=== PATIENT | female | born 1940 | race Caucasian/White ===

== ENCOUNTER 2018-10-15 13:53 | Emergency (ER) | payer MEDICARE, SELFPAY ==
[2018-10-15 13:59] VITALS: TEMP 37; BMI 35.5
[2018-10-15 14:06] VITALS: BP 109/64; PULSE 72; RESP 11; TEMP 37; O2SAT 94
--- NOTE | 2018-10-15 14:15 | DI.CT.S_ITS ---
PROCEDURE: CT HEAD/BRAIN WO CON INDICATIONS: dizzy, n,v like when she had a tia before. TECHNIQUE: Noncontrast 4.5 mm thick angled axial sections acquired from the foramen magnum to the vertex, with coronal and sagittal reformats. For radiation dose reduction, the following was used: automated exposure control, adjustment of mA and/or kV according to patient size. COMPARISON: [facility], CT, BRAIN (TPA), 12/30/2013, 12:38. FINDINGS: Image quality: Excellent. CSF spaces: Basal cisterns are patent. No extra-axial fluid collections. The ventricles are symmetric in size and shape. Brain: No intracranial bleeds or masses. There is moderate cerebral volume loss for age, with resultant ventricular and sulcal prominence. There are moderate to severe periventricular and deep white matter chronic small vessel ischemic changes. There is intracranial internal carotid and vertebral artery atherosclerosis. Skull and face: Calvarium and visualized facial bones appear intact, without suspicious lesions. Sinuses: Visualized sinuses and mastoids are clear. IMPRESSION: No acute intracranial disease process. Dictated by: Eliana Andres MD, PhD on 10/15/2018 at 14:42 Approved by: Eliana Andres MD, PhD on 10/15/2018 at 14:46
[2018-10-15 14:23] LABS: Add Manual Diff / Slide Review NO; Basophils Absolute Auto 100 /uL (0-100); Basophils Percent Auto 1.4 % (0-2); Eosinophils Absolute Auto 300 /uL (0-450); Eosinophils Percent Auto 5.2 % (2-4); Hematocrit 40.8 % (36-46); Hemoglobin 12.7 g/dL (12.0-16.0); Lymphocytes Absolute Auto 900 /uL (1100-4500); Lymphocytes Percent Auto 15.3 % (25-40); Mean Corpuscular HGB Conc 31.2 % (30-36); Mean Corpuscular Volume 89.5 fL (80-100); Monocytes Absolute Auto 500 /uL (0-900); Monocytes Percent Auto 8.5 % (3-14); Neutrophils Absolute Auto 4100 /uL (1500-7000); Neutrophils Percent Auto 69.6 % (50-75); Platelet Count 162 X10^3/uL (150-400); Red Blood Cell Count 4.56 X10^6/uL (4.0-5.2); Red Cell Distribution Width 21.2 % (11.6-14.8); White Blood Cell Count 5.9 X10^3/uL (4.5-11.0)
[2018-10-15 14:31] LABS: Prothrombin Time 11.9 SECONDS (10.1-12.7)
[2018-10-15 14:33] LABS: PTT Partial Thromboplastin Tim 24 SECONDS (26.4-36.2)
[2018-10-15 14:35] LABS: Alanine Aminotransferase 32 IU/L (9-52); Albumin 4.1 g/dL (3.5-5.0); Albumin Globulin Ratio 1.5 (1.0-2.8); Alkaline Phosphatase 61 U/L (38-126); Aspartate Aminotransferase 32 IU/L (14-36); BUN Creatinine Ratio 16.7 (6-22); Bilirubin Total 0.5 mg/dL (0.2-1.3); Blood Urea Nitrogen 20 mg/dL (7-17); Calcium 8.9 mg/dL (8.4-10.2); Carbon Dioxide 25 mmol/L (22-32); Chloride 103 mmol/L (98-107); Estimated Glomerular Filt Rate 43.3 mL/min (>60); Globulin 2.8 g/dL (1.7-4.1); Glucose 117 mg/dL (80-110); HEMOLYSIS < 15 (0-50); Lipase 92 U/L (23-300); Potassium 4.3 mmol/L (3.4-5.1); Sodium 139 mmol/L (137-145); Total Protein 6.9 g/dL (6.3-8.2)
[2018-10-15 14:47] LABS: Troponin I < 0.012 ng/mL (0.01-0.034)
[2018-10-15] MEDS: SODIUM CHLORIDE 0.9% 1,000 ML 1000 ML IV (14:47)
[2018-10-15 14:56] LABS: Anisocytosis 1+; Poikilocytosis 1+
[2018-10-15 14:57] LABS: Platelet Estimate Decreased on smear
--- NOTE | 2018-10-15 14:58 | ED.NAVMDI ---
HPI - Nausea/Vomiting/Diarrhea General Chief complaint: Nausea/Vomiting/Diarrhea Stated complaint: Vomiting Time Seen by Provider: 10/15/18 14:07 Source: patient and EMS Mode of arrival: EMS Limitations: no limitations History of Present Illness HPI Narrative: This is a pleasant 78-year-old female who comes in with complaint of lightheadedness. 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 Patient states she occasionally will feel little lightheaded but does not ever feel like she is really going to pass out. She denies any vertigo symptoms or feeling dizzy. She states she has often does not drink enough water, some today she started feeling lightheaded and continued to worsen over time she states that she tried to drink some water but was not helpful. She then felt very lightheaded like she might pass out. She did not lose consciousness but did sit down. She threw up about 4 times and she states it was liquidy. She has occasional headache but none currently, no vision changes, no chest pain or shortness of breath or abdominal pain. she occasionally has cramping in her extremities which she treats with quinine/tonic water. She has had normal bowel movements which are always hard, she has not had any urinary issues. She denies any numbness, weakness or tingling. She does have a remote history of a TIA she received tPA and was shipped to [facility] but states that she was told she had a TIA and not an actual stroke. She states symptoms were not like this today although she has very dizzy at that time. She does take methotrexate for rheumatoid arthritis, folic acid as well as vitamin-D, B12 and C. And she takes losartan for her hypertension. She states she does believe she has some chronic kidney disease. She quit smoking about 5 years ago. She does take an aspirin 81 mg daily but has not had all her medications today. She did feel tired yesterday and stayed home but did not have any other symptoms. Related Data Home Medications Medication Instructions Recorded Confirmed folic acid 1 dose PO DAILY 10/15/18 10/15/18 losartan 25 mg PO DAILY 10/15/18 10/15/18 methotrexate sodium See Rx Instructions .ROUTE .COMPLEX 10/15/18 10/15/18 omeprazole 20 mg PO DAILY 10/15/18 10/15/18 Allergies Allergy/AdvReac Type Severity Reaction Status Date / Time No Known Drug Allergies Allergy Verified 10/15/18 14:03 Review of Systems Review of Systems ROS Unobtainable: All systems reviewed & are unremarkable except as noted in HPI and below Constitutional Denies chills, Denies fever(s), Denies headache(s), Denies lethargy and Denies weakness Eyes Denies change in vision ENT Ears, Nose, Mouth, and Throat: Denies vertigo, Denies dizziness and Denies headache(s) Cardiovascular Denies chest pain, Denies syncope, Denies rapid heart rate, Denies edema, Denies irregular heart rhythm, Reports lightheadedness, Denies radiating jaw, neck or arm pain, Denies palpitations, Denies dyspnea, Denies dyspnea on exertion and Denies orthopnea Respiratory Denies chest congestion, Denies cough, Denies dyspnea and Denies dyspnea on exertion Gastrointestinal Gastrointestinal: Denies abdominal pain, Denies change in bowel habits, Denies change in stool character, Denies diarrhea, Reports nausea (esolved) and Reports vomiting (resolved) Genitourinary Denies hematuria, Denies urinary frequency, Denies dysuria, Denies flank pain, Denies urinary incontinence and Denies urinary urgency Musculoskeletal Denies abnormal gait, Reports back pain (chronic low back pain) and Denies tingling Integumentary/Breasts Denies rash Neurologic Denies abnormal gait, Denies confusion, Denies vertigo, Denies dizziness, Denies syncope, Denies headache(s), Denies focal weakness, Denies sensory deficit, Denies tingling, Denies paresthesias and Denies weakness Psychiatric Denies confusion Endocrine Denies palpitations [facility] Medical History (Updated 10/15/18 @ 17:26 by Rayne Mckeon DO) Hypertension (Chronic) Rheumatoid arthritis (Chronic) Surgical History (Updated 10/15/18 @ 17:23 by Rayne Mckeon DO) History of tonsillectomy (Chronic) Social History Smoking Status: Former smoker Social History Smoking Status: Former smoker Exam Narrative Exam Narrative: GEN: well nourished, well appearing female, alert and oriented x 3, patient appears to be in no acute distress. HEENT: Atraumatic, pupils are equal round reactive to light, extraocular movements are intact, nares are clear, TMs are clear with no fluid, there is no conjunctival pallor. Throat is clear without any exudates, erythema, tonsillar enlargement or uvular deviation, no facial droop. HEART: Regular rate and rhythm without murmur, clicks, rubs. Pulses are equal in upper and lower extremities LUNGS:Lungs clear to auscultation, no wheezes, rales, crackles, chest moves symmetrically ABD:bowel sounds normal, soft, non-tender, no guarding, rebound, rigidity, no masses noted, no hepatosplenomegaly :No CVA tenderness MSCL: Non-tender, no muscle atrophy, muscles strength 5/5 upper and lower extremities, full range of motion, normal gait NEURO:CN 2-12 intact, sensation normal, reflexes 2/4 upper and lower extremities. finger nose finger test normal, heel vidal test normal Initial Vital Signs Initial Vital Signs: Vital Signs Temperature 98.6 F 10/15/18 13:59 Scores NIH Stroke Scale Level of Conciousness: Alert, keenly responsive Ask month/age: Answers both questions correctly. Open/close eyes, close hand: Performs both tasks correctly Best gaze horizontal: Normal Visual newman: No visual loss Facial palsy: Normal symetrical movement Left arm drift: No drift for full 10 sec Right arm drift: No drift for full 10 sec Left leg drift: No drift for full 10 sec Right leg drift: No drift for full 10 sec Limb ataxia: Absent Sensory on face/arms/legs: Normal, no sensory loss Best language: No aphasia, normal Dysarthria: Normal Extinction or inattention: No abnormality Total NIH Stroke scale score: 0 Course Orders Ordered: ED Orders 10/15/18 14:00 Complete Blood Count AUTO DIFF Stat Comprehensive Metabolic Panel Stat Lipase Stat Partial Thromboplastin Time Stat Prothrombin Time INR Stat Troponin I Stat 10/15/18 14:15 CT head/brain wo con Stat EKG-12 Lead Stat Discontinued Medications Sodium Chloride (Normal Saline 0.9%) 1,000 mls @ 1,000 mls/hr IV BOLUS ONE Stop: 10/15/18 15:14 Last Infusion: 10/15/18 15:34 Dose: 0 mls/hr Admin: 10/15/18 14:47 Dose: 1,000 mls/hr Vital Signs - 8 hr 10/15/18 13:59 10/15/18 14:06 10/15/18 15:48 Temperature 98.6 F 98.6 F Pulse Rate 72 75 Pulse Rate [Orthostatic Lying] Pulse Rate [Orthostatic Sitting] Pulse Rate [Orthostatic Standing] Respiratory Rate 11 L 14 Blood Pressure Blood Pressure [Orthostatic Lying] Blood Pressure [Orthostatic Sitting] Blood Pressure [Orthostatic Standing] Blood Pressure [Right Arm] 109/64 129/78 Pulse Oximetry 94 99 10/15/18 16:07 10/15/18 17:25 Temperature Pulse Rate 86 Pulse Rate [Orthostatic Lying] 73 Pulse Rate [Orthostatic Sitting] 79 Pulse Rate [Orthostatic Standing] 89 Respiratory Rate 17 Blood Pressure 158/88 H Blood Pressure [Orthostatic Lying] 138/75 Blood Pressure [Orthostatic Sitting] 147/87 H Blood Pressure [Orthostatic Standing] 138/87 Blood Pressure [Right Arm] Pulse Oximetry 96 MDM - Nausea/Vomiting/Diarrhea Lab Data Attestation: I reviewed the patient's lab results. Result diagrams: 10/15/18 14:00 10/15/18 14:00 Lab Results 10/15/18 10/15/18 10/15/18 Range/Units 14:00 14:00 14:00 WBC 5.9 (4.5-11.0) X10^3/uL RBC 4.56 (4.0-5.2) X10^6/uL Hgb 12.7 (12.0-16.0) g/dL Hct 40.8 (36-46) % MCV 89.5 (80-100) fL MCH 28.0 (26-34) PG MCHC 31.2 (30-36) % RDW 21.2 H (11.6-14.8) % Plt Count 162 (150-400) X10^3/uL Neut % (Auto) 69.6 (50-75) % Lymph % (Auto) 15.3 L (25-40) % [place] % (Auto) 8.5 (3-14) % Eos % (Auto) 5.2 H (2-4) % Baso % (Auto) 1.4 (0-2) % Neut # (Auto) 4100 (7145-4313) /uL Lymph # (Auto) 900 L (1815-7616) /uL [place] # (Auto) 500 (0-900) /uL Eos # (Auto) 300 (0-450) /uL Baso # (Auto) 100 (0-100) /uL Platelet Estimate Decreased on smear RBC Morphology See below Poikilocytosis 1+ H Anisocytosis 1+ H PT 11.9 (10.1-12.7) SECONDS INR 1.0 (0.9-1.3) APTT 24 L (26.4-36.2) SECONDS Sodium 139 (137-145) mmol/L Potassium 4.3 (3.4-5.1) mmol/L Chloride 103 (98-107) mmol/L Carbon Dioxide 25 (22-32) mmol/L BUN 20 H (7-17) mg/dL Creatinine 1.20 H (0.52-1.04) mg/dL Estimated GFR 43.3 L (>60) mL/min BUN/Creatinine Ratio 16.7 (6-22) Glucose 117 H (80-110) mg/dL Calcium 8.9 (8.4-10.2) mg/dL Total Bilirubin 0.5 (0.2-1.3) mg/dL AST 32 (14-36) IU/L ALT 32 (9-52) IU/L Alkaline Phosphatase 61 (38-126) U/L Troponin I < 0.012 (0.01-0.034) ng/mL Total Protein 6.9 (6.3-8.2) g/dL Albumin 4.1 (3.5-5.0) g/dL Globulin 2.8 (1.7-4.1) g/dL Albumin/Globulin Ratio 1.5 (1.0-2.8) Lipase 92 (23-300) U/L Urine Dip Bedside Urine Glucose Negative Bedside Urine Bilirubin - Negative Bedside Urine Ketone - Negative Urine Specific [place] 1.020 Bedside Urine Occult Blood - Negative Bedside Urine pH 6.0 Bedside Urine Protein +/- 15 Bedside Urine Urobilinogen - Negative Bedside Urine Nitrite - Negative Bedside Urine Leukocytes - Negative Esterase Imaging Data CT scan - head: Radiologist's impression: [address] [address] [address] Scan Report Signed Patient: Yvonne WhatleyMR#: [id number] : 1940Acct:[id number] Age/Sex: 78 / FDate of Service: 10/15/18 Loc: ED Accession Number: [id number] Procedure: CT head/brain wo con Ordering Provider: Rayne Mckeon D.O. PROCEDURE: CT HEAD/BRAIN WO CON INDICATIONS: dizzy, n,v like when she had a tia before. TECHNIQUE: Noncontrast 4.5 mm thick angled axial sections acquired from the foramen magnum to the vertex, with coronal and sagittal reformats. For radiation dose reduction, the following was used: automated exposure control, adjustment of mA and/or kV according to patient size. COMPARISON: [facility], CT, BRAIN (TPA), 12/30/2013, 12:38. FINDINGS: Image quality: Excellent. CSF spaces: Basal cisterns are patent. No extra-axial fluid collections. The ventricles are symmetric in size and shape. Brain: No intracranial bleeds or masses. There is moderate cerebral volume loss for age, with resultant ventricular and sulcal prominence. There are moderate to severe periventricular and deep white matter chronic small vessel ischemic changes. There is intracranial internal carotid and vertebral artery atherosclerosis. Skull and face: Calvarium and visualized facial bones appear intact, without suspicious lesions. Sinuses: Visualized sinuses and mastoids are clear. IMPRESSION: No acute intracranial disease process. Dictated by: Eliana Andres MD, PhD on 10/15/2018 at 14:42 Approved by: Eliana Andres MD, PhD on 10/15/2018 at 14:46 ECG Data Attestation: I personally reviewed and interpreted this ECG as follows: Prior ECG tracings: not available for review Interpretation: Sinus rhythm with marked sinus arrhythmia, rate of 75 P are interval 185 [place] 94 and QTC of 447. Patient has a Q-wave in lead 3. No ST elevation or depression noted. [facility] Narrative Medical decision making narrative: Patient does not have any signs of stroke at this time. NIH is 0. She did not have any description there than feeling lightheaded, having hypotensive and having several episodes of emesis. Her creatinine is elevated 1.2 but no priors for comparison, patient states she does have some known chronic kidney disease. Her BUN is also slightly elevated and she admits to not drinking much fluids. Patient was able to stand and ambulate and walk to the bathroom and returned without any issue. We discussed she feels much better and would like to return home. Signs and symptoms were discussed and reasons to return plan for to follow up with her physician after this weekend on Thursday for repeat lab work and re-evaluation of creatinine. Discharge Plan Departure Patient Disposition: Home Clinical Impression: Pre-syncope, Vomiting, Dehydration Discharge Date/Time: 10/15/18 17:27 Interventions: ED Discharge Assessment Last Done: 10/15/18 17:25 Instructions: DI for Syncope in Adults (Fainting) Activity Restrictions/Additional Instructions: Follow-up with your primary care in the next 2-3 days for recheck call Thursday for an appointment You may continue home medications as prescribed, I discussed with your physician about rechecking her creatinine as her renal function is slightly elevated at 1.2 Make sure you are drinking plenty of fluids over the weekend. Return to the emergency department for recurrent symptoms, passing out, sudden severe headaches, vision changes, persistent vomiting, new abdominal pain, chest pain, shortness of breath or other new or concerning concerning symptoms. Prescriptions: No Action methotrexate sodium 2.5 mg tablet See Rx Instructions .ROUTE .COMPLEX RF: 0 losartan 25 mg tablet 25 mg PO DAILY RF: 0 omeprazole 20 mg capsule,delayed release(DR/EC) 20 mg PO DAILY RF: 0 folic acid 1 dose PO DAILY RF: 0 Referrals: Latha Parra MD [Primary Care Provider] -
[2018-10-15 15:48] VITALS: BP 129/78; PULSE 75; RESP 14; O2SAT 99
[2018-10-15 16:07] VITALS: BP 138/75; BP 138/87; BP 147/87; PULSE 73; PULSE 79; PULSE 89
[2018-10-15 17:25] VITALS: BP 158/88; PULSE 86; RESP 17; O2SAT 96
--- NOTE | 2018-10-15 17:26 | ED_ITS ---
HPI - Nausea/Vomiting/Diarrhea General Chief complaint: Nausea/Vomiting/Diarrhea Stated complaint: Vomiting Time Seen by Provider: 10/15/18 14:07 Source: patient and EMS Mode of arrival: EMS Limitations: no limitations History of Present Illness HPI Narrative: This is a pleasant 78-year-old female who comes in with complaint of lightheadedness. 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 Patient states she occasionally will feel little lightheaded but does not ever feel like she is really going to pass out. She denies any vertigo symptoms or feeling dizzy. She states she has often does not drink enough water, some today she started feeling lightheaded and continued to worsen over time she states that she tried to drink some water but was not helpful. She then felt very lightheaded like she might pass out. She did not lose consciousness but did sit down. She threw up about 4 times and she states it was liquidy. She has occasional headache but none currently, no vision changes, no chest pain or shortness of breath or abdominal pain. she occasionally has cramping in her extremities which she treats with quinine/tonic water. She has had normal bowel movements which are always hard, she has not had any urinary issues. She denies any numbness, weakness or tingling. She does have a remote history of a TIA she received tPA and was shipped to [facility] but states that she was told she had a TIA and not an actual stroke. She states symptoms were not like this today although she has very dizzy at that time. She does take methotrexate for rheumatoid arthritis, folic acid as well as vitamin- D, B12 and C. And she takes losartan for her hypertension. She states she does believe she has some chronic kidney disease. She quit smoking about 5 years a go. She does take an aspirin 81 mg daily but has not had all her medications today. She did feel tired yesterday and stayed home but did not have any other symptoms. Related Data Home Medications Medication Instructions Recorded Confirmed folic acid 1 dose PO DAILY 10/15/18 10/15/18 losartan 25 mg PO DAILY 10/15/18 10/15/18 methotrexate sodium See Rx Instructions .ROUTE .COMPLEX 10/15/18 10/15/18 omeprazole 20 mg PO DAILY 10/15/18 10/15/18 Allergies Allergy/AdvReac Type Severity Reaction Status Date / Time No Known Drug Allergies Allergy Verified 10/15/18 14:03 Review of Systems Review of Systems ROS Unobtainable: All systems reviewed & are unremarkable except as noted in HPI and below Constitutional Denies chills, Denies fever(s), Denies headache(s), Denies lethargy and Denies weakness Eyes Denies change in vision ENT Ears, Nose, Mouth, and Throat: Denies vertigo, Denies dizziness and Denies headache(s) Cardiovascular Denies chest pain, Denies syncope, Denies rapid heart rate, Denies edema, Denies irregular heart rhythm, Reports lightheadedness, Denies radiating jaw, neck or arm pain, Denies palpitations, Denies dyspnea, Denies dyspnea on exertion and Denies orthopnea Respiratory Denies chest congestion, Denies cough, Denies dyspnea and Denies dyspnea on exertion Gastrointestinal Gastrointestinal: Denies abdominal pain, Denies change in bowel habits, Denies change in stool character, Denies diarrhea, Reports nausea (esolved) and Reports vomiting (resolved) Genitourinary Denies hematuria, Denies urinary frequency, Denies dysuria, Denies flank pain, Denies urinary incontinence and Denies urinary urgency Musculoskeletal Denies abnormal gait, Reports back pain (chronic low back pain) and Denies t ingling Integumentary/Breasts Denies rash Neurologic Denies abnormal gait, Denies confusion, Denies vertigo, Denies dizziness, Denies syncope, Denies headache(s), Denies focal weakness, Denies sensory deficit, Denies tingling, Denies paresthesias and Denies weakness Psychiatric Denies confusion Endocrine Denies palpitations [facility] Medical History (Updated 10/15/18 @ 17:26 by Rayne Mckeon DO) Hypertension (Chronic) Rheumatoid arthritis (Chronic) Surgical History (Updated 10/15/18 @ 17:23 by Rayne Mckeon DO) History of tonsillectomy (Chronic) Social History Smoking Status: Former smoker Social History Smoking Status: Former smoker Exam Narrative Exam Narrative: GEN: well nourished, well appearing female, alert and oriented x 3, patient appears to be in no acute distress. HEENT: Atraumatic, pupils are equal round reactive to light, extraocular movements are intact, nares are clear, TMs are clear with no fluid, there is no conjunctival pallor. Throat is clear without any exudates, erythema, tonsillar enlargement or uvular deviation, no facial droop. HEART: Regular rate and rhythm without murmur, clicks, rubs. Pulses are equal in upper and lower extremities LUNGS:Lungs clear to auscultation, no wheezes, rales, crackles, chest moves symmetrically ABD:bowel sounds normal, soft, non-tender, no guarding, rebound, rigidity, no ma sses noted, no hepatosplenomegaly :No CVA tenderness MSCL: Non-tender, no muscle atrophy, muscles strength 5/5 upper and lower extremities, full range of motion, normal gait NEURO:CN 2-12 intact, sensation normal, reflexes 2/4 upper and lower extremities. finger nose finger test normal, heel vidal test normal Initial Vital Signs Initial Vital Signs: Vital Signs Temperature 98.6 F 10/15/18 13:59 Scores NIH Stroke Scale Level of Conciousness: Alert, keenly responsive Ask month/age: Answers both questions correctly. Open/close eyes, close hand: Performs both tasks correctly Best gaze horizontal: Normal Visual newman: No visual loss Facial palsy: Normal symetrical movement Left arm drift: No drift for full 10 sec Right arm drift: No drift for full 10 sec Left leg drift: No drift for full 10 sec Right leg drift: No drift for full 10 sec Limb ataxia: Absent Sensory on face/arms/legs: Normal, no sensory loss Best language: No aphasia, normal Dysarthria: Normal Extinction or inattention: No abnormality Total NIH Stroke scale score: 0 Course Orders Ordered: ED Orders 10/15/18 14:00 Complete Blood Count AUTO DIFF Stat Comprehensive Metabolic Panel Stat Lipase Stat Partial Thromboplastin Time Stat Prothrombin Time INR Stat Troponin I Stat 10/15/18 14:15 CT head/brain wo con Stat EKG-12 Lead Stat Discontinued Medications Sodium Chloride (Normal Saline 0.9%) 1,000 mls @ 1,000 mls/hr IV BOLUS ONE Stop: 10/15/18 15:14 Last Infusion: 10/15/18 15:34 Dose: 0 mls/hr Admin: 10/15/18 14:47 Dose: 1,000 mls/hr Vital Signs - 8 hr 10/15/18 13:59 10/15/18 14:06 10/15/18 15:48 Temperature 98.6 F 98.6 F Pulse Rate 72 75 Pulse Rate [Orthostatic Lying] Pulse Rate [Orthostatic Sitting] Pulse Rate [Orthostatic Standing] Respiratory Rate 11 L 14 Blood Pressure Blood Pressure [Orthostatic Lying] Blood Pressure [Orthostatic Sitting] Blood Pressure [Orthostatic Standing] Blood Pressure [Right Arm] 109/64 129/78 Pulse Oximetry 94 99 10/15/18 16:07 10/15/18 17:25 Temperature Pulse Rate 86 Pulse Rate [Orthostatic Lying] 73 Pulse Rate [Orthostatic Sitting] 79 Pulse Rate [Orthostatic Standing] 89 Respiratory Rate 17 Blood Pressure 158/88 H Blood Pressure [Orthostatic Lying] 138/75 Blood Pressure [Orthostatic Sitting] 147/87 H Blood Pressure [Orthostatic Standing] 138/87 Blood Pressure [Right Arm] Pulse Oximetry 96 MDM - Nausea/Vomiting/Diarrhea Lab Data Attestation: I reviewed the patient's lab results. Result diagrams: 10/15/18 14:00 10/15/18 14:00 Lab Results 10/15/18 10/15/18 10/15/18 Range/Units 14:00 14:00 14:00 WBC 5.9 (4.5-11.0) X10^3/uL RBC 4.56 (4.0-5.2) X10^6/uL Hgb 12.7 (12.0-16.0) g/dL Hct 40.8 (36-46) % MCV 89.5 (80-100) fL MCH 28.0 (26-34) PG MCHC 31.2 (30-36) % RDW 21.2 H (11.6-14.8) % Plt Count 162 (150-400) X10^3/uL Neut % (Auto) 69.6 (50-75) % Lymph % (Auto) 15.3 L (25-40) % [place] % (Auto) 8.5 (3-14) % Eos % (Auto) 5.2 H (2-4) % Baso % (Auto) 1.4 (0-2) % Neut # (Auto) 4100 (9729-8800) /uL Lymph # (Auto) 900 L (4694-8138) /uL [place] # (Auto) 500 (0-900) /uL Eos # (Auto) 300 (0-450) /uL Baso # (Auto) 100 (0-100) /uL Platelet Estimate Decreased on smear RBC Morphology See below Poikilocytosis 1+ H Anisocytosis 1+ H PT 11.9 (10.1-12.7) SECONDS INR 1.0 (0.9-1.3) APTT 24 L (26.4-36.2) SECONDS Sodium 139 (137-145) mmol/L Potassium 4.3 (3.4-5.1) mmol/L Chloride 103 (98-107) mmol/L Carbon Dioxide 25 (22-32) mmol/L BUN 20 H (7-17) mg/dL Creatinine 1.20 H (0.52-1.04) mg/dL Estimated GFR 43.3 L (>60) mL/min BUN/Creatinine Ratio 16.7 (6-22) Glucose 117 H (80-110) mg/dL Calcium 8.9 (8.4-10.2) mg/dL Total Bilirubin 0.5 (0.2-1.3) mg/dL AST 32 (14-36) IU/L ALT 32 (9-52) IU/L Alkaline Phosphatase 61 (38-126) U/L Troponin I < 0.012 (0.01-0.034) ng/mL Total Protein 6.9 (6.3-8.2) g/dL Albumin 4.1 (3.5-5.0) g/dL Globulin 2.8 (1.7-4.1) g/dL Albumin/Globulin Ratio 1.5 (1.0-2.8) Lipase 92 (23-300) U/L Urine Dip Bedside Urine Glucose Negative Bedside Urine Bilirubin - Negative Bedside Urine Ketone - Negative Urine Specific [place] 1.020 Bedside Urine Occult Blood - Negative Bedside Urine pH 6.0 Bedside Urine Protein +/- 15 Bedside Urine Urobilinogen - Negative Bedside Urine Nitrite - Negative Bedside Urine Leukocytes - Negative Esterase Imaging Data CT scan - head: Radiologist's impression: [address] [address] [address] Scan Report Signed Patient: Leticia Whatley#: [id number] : 1940Acct:[id number] Age/Sex: 78 / FDate of Service: 10/15/18 Loc: ED Accession Number: [id number] Procedure: CT head/brain wo con Ordering Provider: Rayne Mckeon D.O. PROCEDURE: CT HEAD/BRAIN WO CON INDICATIONS: dizzy, n,v like when she had a tia before. TECHNIQUE: Noncontrast 4.5 mm thick angled axial sections acquired from the foramen magnum to the vertex, with coronal and sagittal reformats. For radiation dose reduction, the following was used: automated exposure control, adjustment of mA and/or kV according to patient size. COMPARISON: [facility], CT, BRAIN (TPA), 12/30/2013, 12:38. FINDINGS: Image quality: Excellent. CSF spaces: Basal cisterns are patent. No extra-axial fluid collections. The ventricles are symmetric in size and shape. Brain: No intracranial bleeds or masses. There is moderate cerebral volume loss for age, with resultant ventricular and sulcal prominence. There are moderate to severe periventricular and deep white matter chronic small vessel ischemic changes. There is intracranial internal carotid and vertebral artery atherosclerosis. Skull and face: Calvarium and visualized facial bones appear intact, without suspicious lesions. Sinuses: Visualized sinuses and mastoids are clear. IMPRESSION: No acute intracranial disease process. Dictated by: Eliana Andres MD, PhD on 10/15/2018 at 14:42 Approved by: Eliana Andres MD, PhD on 10/15/2018 at 14:46 ECG Data Attestation: I personally reviewed and interpreted this ECG as follows: Prior ECG tracings: not available for review Interpretation: Sinus rhythm with marked sinus arrhythmia, rate of 75 P are interval 185 [place] 94 and QTC of 447. Patient has a Q-wave in lead 3. No ST elevation or depression noted. [facility] Narrative Medical decision making narrative: Patient does not have any signs of stroke at this time. NIH is 0. She did not have any description there than feeling lightheaded, having hypotensive and having several episodes of emesis. Her creatinine is elevated 1.2 but no priors for comparison, patient states she does have some known chronic kidney disease. Her BUN is also slightly elevated and she admits to not drinking much fluids. Patient was able to stand and ambulate and walk to the bathroom and returned without any issue. We discussed she feels much better and would like to return home. Signs and symptoms were discussed and reasons to return plan for to follow up with her physician after this weekend on Thursday for repeat lab work and re-evaluation of creatinine. Discharge Plan Departure Patient Disposition: Home Clinical Impression: Pre-syncope, Vomiting, Dehydration Discharge Date/Time: 10/15/18 17:27 Interventions: ED Discharge Assessment Last Done: 10/15/18 17:25 Instructions: DI for Syncope in Adults (Fainting) Activity Restrictions/Additional Instructions: Follow-up with your primary care in the next 2-3 days for recheck call Thursday for an appointment You may continue home medications as prescribed, I discussed with your physician about rechecking her creatinine as her renal function is slightly elevated at 1.2 Make sure you are drinking plenty of fluids over the weekend. Return to the emergency department for recurrent symptoms, passing out, sudden severe headaches, vision changes, persistent vomiting, new abdominal pain, chest pain, shortness of breath or other new or concerning concerning symptoms. Prescriptions: No Action methotrexate sodium 2.5 mg tablet See Rx Instructions .ROUTE .COMPLEX RF: 0 losartan 25 mg tablet 25 mg PO DAILY RF: 0 omeprazole 20 mg capsule,delayed release(DR/EC) 20 mg PO DAILY RF: 0 folic acid 1 dose PO DAILY RF: 0 Referrals: Latha Parra MD [Primary Care Provider] -
== END 2018-10-15 17:27 | disposition home or self-care (01) ==
PROVIDERS: Emergency Provider Emergency Medicine; PCP Internal Medicine Geriatric Medicine
DX: E86.0 Dehydration (principal); R55 Syncope and collapse; R11.10 Vomiting, unspecified; Z86.73 Personal history of transient ischemic attack (TIA), and cerebral infarction without residual deficits; Z79.82 Long term (current) use of aspirin
CPT/HCPCS: 36415; 36591; 70450; 80053; 81003; 83690; 84484; 85025; 85610; 85730; 93005; 96360; 99283; 99285

== ENCOUNTER 2018-12-18 13:26 | Emergency (ER) | payer MEDICARE, SELFPAY ==
[2018-12-18 13:34] VITALS: BP 117/76; PULSE 86; RESP 30; TEMP 37.1; O2SAT 94; BMI 32.0
[2018-12-18 13:45] VITALS: BP 117/76; PULSE 87; RESP 18; O2SAT 94
--- NOTE | 2018-12-18 13:45 | ED.SYNCOPE ---
HPI - Syncope General Chief Complaint: Syncope Stated Complaint: Near Syncope Time Seen by Provider: 12/18/18 13:31 Source: EMS and old records reviewed Mode of arrival: EMS Limitations: no limitations History of Present Illness HPI narrative: Patient is a christen 78-year-old female was working at [employer] doing [employer] when she had a syncopal episode. This happened to her 1 other time previously and october. She was thought to be orthostatic. She says she does not typically eat breakfast which she did again today. She has been standing for about 3 hours when she started feeling lightheaded she had about 2 large glasses of water she still felt lightheaded. EMS arrived he actually had a witnessed syncopal episode by EMS. She was on the monitor the whole time for them she was in normal sinus rhythm. Her blood pressure was so low they are unable to get it. She had some incontinence which patient states she has incontinence every day. She denies that she passed out at all. Given the was witnessed by EMS. She now is mostly concerned about getting her dental ice cream put away at [employer] before we take her her. She is wanting to go back to work immediately. She has no focal deficits. She has no chest pain no heart palpitations. Related Data Home Medications Medication Instructions Recorded Confirmed folic acid 1 dose PO DAILY 10/15/18 10/15/18 losartan 25 mg PO DAILY 10/15/18 10/15/18 methotrexate sodium See Rx Instructions .ROUTE .COMPLEX 10/15/18 10/15/18 omeprazole 20 mg PO DAILY 10/15/18 10/15/18 Allergies Allergy/AdvReac Type Severity Reaction Status Date / Time No Known Drug Allergies Allergy Verified 12/18/18 13:37 Review of Systems Review of Systems ROS Unobtainable: All systems reviewed & are unremarkable except as noted in HPI and below Eyes Denies change in vision, Denies eye discharge, Denies irritation and Denies loss of vision Cardiovascular Reports syncope, Denies irregular heart rhythm, Denies dyspnea and Denies dyspnea on exertion Respiratory Denies cough, Denies dyspnea, Denies dyspnea on exertion and Denies wheezing Gastrointestinal Gastrointestinal: Denies abdominal pain, Denies change in bowel habits, Denies diarrhea, Denies nausea and Denies vomiting Genitourinary Denies hematuria, Denies flank pain, Denies urinary incontinence and Denies urinary urgency Musculoskeletal Denies back pain, Denies muscle weakness, Denies numbness and Denies tingling Integumentary/Breasts Denies pruritus, Denies erythema, Denies rash and Denies wounds Neurologic Denies confusion, Reports syncope, Denies loss of vision, Denies numbness and Denies tingling Psychiatric Denies anxiety, Denies confusion, Denies depression, Denies homicidal ideation and Denies suicidal ideation Allergic/Immunologic Denies wheezing [facility] Medical History Hypertension (Chronic) Rheumatoid arthritis (Chronic) Surgical History History of tonsillectomy (Chronic) Social History Smoking Status: Former smoker Social History Smoking Status: Former smoker Exam Initial Vital Signs Initial Vital Signs: Vital Signs Temperature 98.8 F 12/18/18 13:34 Pulse Rate 86 12/18/18 13:34 Respiratory Rate 30 H 12/18/18 13:34 Blood Pressure 117/76 12/18/18 13:34 Pulse Oximetry 94 12/18/18 13:34 GENERAL: Very stubborn well-appearing elderly female HEENT: Head atraumatic,EOMI, pupils reactive, face symmetric, moist mucous membranes CARDIOVASCULAR: Regular rate and rhythm without murmurs, rubs or gallops. RESPIRATORY: Breath sounds equal bilaterally, no wheezes rales or rhonchi. ABDOMEN: Soft, nontender. Normoactive bowel sounds all 4 quadrants. No guarding or rebound. EXTREMITIES: Normal range of motion, no clubbing or edema. Neurovascularly intact NEUROLOGICAL: Alert and oriented x4.Normal gait and speech. Cranial nerves II through XII grossly intact. Good [id number], good [id number], strength equal bilaterally, no dysarthria or aphasia, sensation in tact to soft touch bilaterally, no visual changes, no facial droop SKIN: Warm, dry, no laceration, no petechiae, no rashes or lesions. Scores NIH Stroke Scale Level of Conciousness: Alert, keenly responsive Ask month/age: Answers both questions correctly. Open/close eyes, close hand: Performs both tasks correctly Best gaze horizontal: Normal Visual newman: No visual loss Facial palsy: Normal symetrical movement Left arm drift: No drift for full 10 sec Right arm drift: No drift for full 10 sec Left leg drift: No drift for full 10 sec Right leg drift: No drift for full 10 sec Limb ataxia: Absent Sensory on face/arms/legs: Normal, no sensory loss Best language: No aphasia, normal Dysarthria: Normal Extinction or inattention: No abnormality Total NIH Stroke scale score: 0 Course Orders Ordered: ED Orders 12/18/18 13:31 EKG-12 Lead Stat 12/18/18 13:50 Complete Blood Count AUTO DIFF Stat Comprehensive Metabolic Panel Stat Lactate (Lactic Acid) Stat Troponin & CK Cardiac Panel Stat Discontinued Medications Sodium Chloride (Normal Saline 0.9%) 1,000 mls @ 1,000 mls/hr IV BOLUS ONE Stop: 12/18/18 14:43 Last Infusion: 12/18/18 15:30 Dose: 0 mls/hr Admin: 12/18/18 13:57 Dose: 1,000 mls/hr Vital Signs - 8 hr 12/18/18 13:34 12/18/18 13:45 12/18/18 14:30 Temperature 98.8 F Pulse Rate 86 87 85 Pulse Rate [Orthostatic Lying] Pulse Rate [Orthostatic Sitting] Pulse Rate [Orthostatic Standing] Respiratory Rate 30 H 18 23 Blood Pressure 117/76 Blood Pressure [Left Arm] 117/76 139/62 Blood Pressure [Orthostatic Lying] Blood Pressure [Orthostatic Sitting] Blood Pressure [Orthostatic Standing] Pulse Oximetry 94 94 95 12/18/18 15:49 Temperature Pulse Rate Pulse Rate [Orthostatic Lying] 88 Pulse Rate [Orthostatic Sitting] 85 Pulse Rate [Orthostatic Standing] 91 H Respiratory Rate Blood Pressure Blood Pressure [Left Arm] Blood Pressure [Orthostatic Lying] 149/83 H Blood Pressure [Orthostatic Sitting] 127/76 Blood Pressure [Orthostatic Standing] 138/90 Pulse Oximetry MDM - Syncope Lab Data Attestation: I reviewed the patient's lab results. Result diagrams: 12/18/18 13:50 12/18/18 13:50 Lab Results 12/18/18 12/18/18 12/18/18 Range/Units 13:50 13:50 13:50 WBC 5.4 (4.5-11.0) X10^3/uL RBC 4.01 (4.0-5.2) X10^6/uL Hgb 11.4 L (12.0-16.0) g/dL Hct 35.6 L (36-46) % MCV 88.7 (80-100) fL MCH 28.5 (26-34) PG MCHC 32.1 (30-36) % RDW 21.6 H (11.6-14.8) % Plt Count 203 (150-400) X10^3/uL Neut % (Auto) 86.6 H (50-75) % Lymph % (Auto) 6.9 L (25-40) % [place] % (Auto) 4.0 (3-14) % Eos % (Auto) 1.6 L (2-4) % Baso % (Auto) 0.9 (0-2) % Neut # (Auto) 4700 (1718-8094) /uL Lymph # (Auto) 400 L (9218-5381) /uL [place] # (Auto) 200 (0-900) /uL Eos # (Auto) 100 (0-450) /uL Baso # (Auto) 0 (0-100) /uL RBC Morphology Not Reportable Anisocytosis 3+ H Macrocytosis 1+ H [place] Bodies 1+ H Sodium 140 (137-145) mmol/L Potassium 4.6 (3.4-5.1) mmol/L Chloride 106 (98-107) mmol/L Carbon Dioxide 24 (22-32) mmol/L BUN 16 (7-17) mg/dL Creatinine 1.20 H (0.52-1.04) mg/dL Estimated GFR 43.3 L (>60) mL/min BUN/Creatinine Ratio 13.3 (6-22) Glucose 149 H (80-110) mg/dL Lactate 2.9 H (0.7-2.1) mmol/L Calcium 8.3 L (8.4-10.2) mg/dL Total Bilirubin 1.0 (0.2-1.3) mg/dL AST 41 H (14-36) IU/L ALT 35 (9-52) IU/L Alkaline Phosphatase 62 (38-126) U/L Total Creatine Kinase 68 (30-135) U/L CK-MB (CK-2) TNP CK-MB (CK-2) Rel Index TNP Troponin I < 0.012 (0.01-0.034) ng/mL Total Protein 6.0 L (6.3-8.2) g/dL Albumin 3.3 L (3.5-5.0) g/dL Globulin 2.7 (1.7-4.1) g/dL Albumin/Globulin Ratio 1.2 (1.0-2.8) Urine Dip Bedside Urine Glucose Negative Bedside Urine Bilirubin - Negative Bedside Urine Ketone - Negative Urine Specific [place] 1.015 Bedside Urine Occult Blood - Negative Bedside Urine pH 7.0 Bedside Urine Protein - Negative Bedside Urine Urobilinogen +/- 1mg Bedside Urine Nitrite - Negative Bedside Urine Leukocytes - Negative Esterase ECG Data Attestation: I personally reviewed and interpreted this ECG as follows: Prior ECG tracings: available for review Interpretation: Sinus rhythm rate 86 P are interval [address] changes in leads 3 similar to previous EKG in October no other leads. MDM Narrative Medical decision making narrative: This is a very similar presentation to previous episode. Patient is quite adamant about going home she did receive 2 L of IV fluid. She says it is from dehydration. She does have a witnessed syncopal episode while attached to an EMS monitor which did remain in normal sinus rhythm and did not appear like an AV block according to EMS. I talked with patient at great length that she needs close follow-up. She is adamant about going home. She has ambulated without any difficulty. Discharge Plan Departure Patient Disposition: Home Clinical Impression: Syncope due to orthostatic hypotension Discharge Date/Time: 12/18/18 16:11 Interventions: ED Discharge Assessment Last Done: 12/18/18 16:11 Instructions: Fainting Activity Restrictions/Additional Instructions: *You have been diagnosed with orthostatic hypotension *What to do: It is imperative that you see her primary care provider. You have passed out 2 times. You need to increase her fluid intake and eat regular meals. Also standing for long periods of time can cause passing out I recommend that he set at least once an hour for 10-15 minutes *Continue to take medications as directed *Follow up with your primary care provider in 2-3 days *Return to ER if you should have passing-out chest pain heart palpitations dizziness lightheadedness nausea weakness and facial drooping difficulty speaking or any new, worsening or concerning symptoms Prescriptions: No Action methotrexate sodium 2.5 mg tablet See Rx Instructions .ROUTE .COMPLEX RF: 0 losartan 25 mg tablet 25 mg PO DAILY RF: 0 omeprazole 20 mg capsule,delayed release(DR/EC) 20 mg PO DAILY RF: 0 folic acid 1 dose PO DAILY RF: 0 Referrals: Latha Parra MD [Primary Care Provider] -
--- NOTE | 2018-12-18 13:48 | ED_ITS ---
HPI - Syncope General Chief Complaint: Syncope Stated Complaint: Near Syncope Time Seen by Provider: 12/18/18 13:31 Source: EMS and old records reviewed Mode of arrival: EMS Limitations: no limitations History of Present Illness HPI narrative: Patient is a christen 78-year-old female was working at [email or web address] doing [employer] when she had a syncopal episode. This happened to her 1 other time previously and october. She was thought to be orthostatic. She says she does not typically eat breakfast which she did again today. She has been standing for about 3 hours when she started feeling lightheaded she had about 2 large glasses of water she still felt lightheaded. EMS arrived he actually had a witnessed syncopal episode by EMS. She was on the monitor the whole time for them she was in normal sinus rhythm. Her blood pressure was so low they are unable to get it. She had some incontinence which patient states she has incontinence every day. She denies that she passed out at all. Given the was witnessed by EMS. She now is mostly concerned about getting her dental ice cream put away at [email or web address] before we take her her. She is wanting to go back to work immediately. She has no focal deficits. She has no chest pain no heart palpitations. Related Data Home Medications Medication Instructions Recorded Confirmed folic acid 1 dose PO DAILY 10/15/18 10/15/18 losartan 25 mg PO DAILY 10/15/18 10/15/18 methotrexate sodium See Rx Instructions .ROUTE .COMPLEX 10/15/18 10/15/18 omeprazole 20 mg PO DAILY 10/15/18 10/15/18 Allergies Allergy/AdvReac Type Severity Reaction Status Date / Time No Known Drug Allergies Allergy Verified 12/18/18 13:37 Review of Systems Review of Systems ROS Unobtainable: All systems reviewed & are unremarkable except as noted in HPI and below Eyes Denies change in vision, Denies eye discharge, Denies irritation and Denies loss of vision Cardiovascular Reports syncope, Denies irregular heart rhythm, Denies dyspnea and Denies dyspnea on exertion Respiratory Denies cough, Denies dyspnea, Denies dyspnea on exertion and Denies wheezing Gastrointestinal Gastrointestinal: Denies abdominal pain, Denies change in bowel habits, Denies diarrhea, Denies nausea and Denies vomiting Genitourinary Denies hematuria, Denies flank pain, Denies urinary incontinence and Denies urinary urgency Musculoskeletal Denies back pain, Denies muscle weakness, Denies numbness and Denies tingling Integumentary/Breasts Denies pruritus, Denies erythema, Denies rash and Denies wounds Neurologic Denies confusion, Reports syncope, Denies loss of vision, Denies numbness and Denies tingling Psychiatric Denies anxiety, Denies confusion, Denies depression, Denies homicidal ideation and Denies suicidal ideation Allergic/Immunologic Denies wheezing [facility] Medical History Hypertension (Chronic) Rheumatoid arthritis (Chronic) Surgical History History of tonsillectomy (Chronic) Social History Smoking Status: Former smoker Social History Smoking Status: Former smoker Exam Initial Vital Signs Initial Vital Signs: Vital Signs Temperature 98.8 F 12/18/18 13:34 Pulse Rate 86 12/18/18 13:34 Respiratory Rate 30 H 12/18/18 13:34 Blood Pressure 117/76 12/18/18 13:34 Pulse Oximetry 94 12/18/18 13:34 GENERAL: Very stubborn well-appearing elderly female HEENT: Head atraumatic,EOMI, pupils reactive, face symmetric, moist mucous membranes CARDIOVASCULAR: Regular rate and rhythm without murmurs, rubs or gallops. RESPIRATORY: Breath sounds equal bilaterally, no wheezes rales or rhonchi. ABDOMEN: Soft, nontender. Normoactive bowel sounds all 4 quadrants. No guarding or rebound. EXTREMITIES: Normal range of motion, no clubbing or edema. Neurovascularly intact NEUROLOGICAL: Alert and oriented x4.Normal gait and speech. Cranial nerves II through XII grossly intact. Good [id number], good [id number], strength equal bilaterally, no dysarthria or aphasia, sensation in tact to soft touch bilaterally, no visual changes, no facial droop SKIN: Warm, dry, no laceration, no petechiae, no rashes or lesions. Scores NIH Stroke Scale Level of Conciousness: Alert, keenly responsive Ask month/age: Answers both questions correctly. Open/close eyes, close hand: Performs both tasks correctly Best gaze horizontal: Normal Visual newman: No visual loss Facial palsy: Normal symetrical movement Left arm drift: No drift for full 10 sec Right arm drift: No drift for full 10 sec Left leg drift: No drift for full 10 sec Right leg drift: No drift for full 10 sec Limb ataxia: Absent Sensory on face/arms/legs: Normal, no sensory loss Best language: No aphasia, normal Dysarthria: Normal Extinction or inattention: No abnormality Total NIH Stroke scale score: 0 Course Orders Ordered: ED Orders 12/18/18 13:31 EKG-12 Lead Stat 12/18/18 13:50 Complete Blood Count AUTO DIFF Stat Comprehensive Metabolic Panel Stat Lactate (Lactic Acid) Stat Troponin & CK Cardiac Panel Stat Discontinued Medications Sodium Chloride (Normal Saline 0.9%) 1,000 mls @ 1,000 mls/hr IV BOLUS ONE Stop: 12/18/18 14:43 Last Infusion: 12/18/18 15:30 Dose: 0 mls/hr Admin: 12/18/18 13:57 Dose: 1,000 mls/hr Vital Signs - 8 hr 12/18/18 13:34 12/18/18 13:45 12/18/18 14:30 Temperature 98.8 F Pulse Rate 86 87 85 Pulse Rate [Orthostatic Lying] Pulse Rate [Orthostatic Sitting] Pulse Rate [Orthostatic Standing] Respiratory Rate 30 H 18 23 Blood Pressure 117/76 Blood Pressure [Left Arm] 117/76 139/62 Blood Pressure [Orthostatic Lying] Blood Pressure [Orthostatic Sitting] Blood Pressure [Orthostatic Standing] Pulse Oximetry 94 94 95 12/18/18 15:49 Temperature Pulse Rate Pulse Rate [Orthostatic Lying] 88 Pulse Rate [Orthostatic Sitting] 85 Pulse Rate [Orthostatic Standing] 91 H Respiratory Rate Blood Pressure Blood Pressure [Left Arm] Blood Pressure [Orthostatic Lying] 149/83 H Blood Pressure [Orthostatic Sitting] 127/76 Blood Pressure [Orthostatic Standing] 138/90 Pulse Oximetry MDM - Syncope Lab Data Attestation: I reviewed the patient's lab results. Result diagrams: 12/18/18 13:50 12/18/18 13:50 Lab Results 12/18/18 12/18/18 12/18/18 Range/Units 13:50 13:50 13:50 WBC 5.4 (4.5-11.0) X10^3/uL RBC 4.01 (4.0-5.2) X10^6/uL Hgb 11.4 L (12.0-16.0) g/dL Hct 35.6 L (36-46) % MCV 88.7 (80-100) fL MCH 28.5 (26-34) PG MCHC 32.1 (30-36) % RDW 21.6 H (11.6-14.8) % Plt Count 203 (150-400) X10^3/uL Neut % (Auto) 86.6 H (50-75) % Lymph % (Auto) 6.9 L (25-40) % [place] % (Auto) 4.0 (3-14) % Eos % (Auto) 1.6 L (2-4) % Baso % (Auto) 0.9 (0-2) % Neut # (Auto) 4700 (0502-6938) /uL Lymph # (Auto) 400 L (2329-7924) /uL [place] # (Auto) 200 (0-900) /uL Eos # (Auto) 100 (0-450) /uL Baso # (Auto) 0 (0-100) /uL RBC Morphology Not Reportable Anisocytosis 3+ H Macrocytosis 1+ H Downing-Dillon Bodies 1+ H Sodium 140 (137-145) mmol/L Potassium 4.6 (3.4-5.1) mmol/L Chloride 106 (98-107) mmol/L Carbon Dioxide 24 (22-32) mmol/L BUN 16 (7-17) mg/dL Creatinine 1.20 H (0.52-1.04) mg/dL Estimated GFR 43.3 L (>60) mL/min BUN/Creatinine Ratio 13.3 (6-22) Glucose 149 H (80-110) mg/dL Lactate 2.9 H (0.7-2.1) mmol/L Calcium 8.3 L (8.4-10.2) mg/dL Total Bilirubin 1.0 (0.2-1.3) mg/dL AST 41 H (14-36) IU/L ALT 35 (9-52) IU/L Alkaline Phosphatase 62 (38-126) U/L Total Creatine Kinase 68 (30-135) U/L CK-MB (CK-2) TNP CK-MB (CK-2) Rel Index TNP Troponin I < 0.012 (0.01-0.034) ng/mL Total Protein 6.0 L (6.3-8.2) g/dL Albumin 3.3 L (3.5-5.0) g/dL Globulin 2.7 (1.7-4.1) g/dL Albumin/Globulin Ratio 1.2 (1.0-2.8) Urine Dip Bedside Urine Glucose Negative Bedside Urine Bilirubin - Negative Bedside Urine Ketone - Negative Urine Specific [place] 1.015 Bedside Urine Occult Blood - Negative Bedside Urine pH 7.0 Bedside Urine Protein - Negative Bedside Urine Urobilinogen +/- 1mg Bedside Urine Nitrite - Negative Bedside Urine Leukocytes - Negative Esterase ECG Data Attestation: I personally reviewed and interpreted this ECG as follows: Prior ECG tracings: available for review Interpretation: Sinus rhythm rate 86 P are interval [address] changes in leads 3 similar to previous EKG in October no other leads. MDM Narrative Medical decision making narrative: This is a very similar presentation to previous episode. Patient is quite adamant about going home she did receive 2 L of IV fluid. She says it is from dehydration. She does have a witnessed syncopal episode while attached to an EMS monitor which did remain in normal sinus rhythm and did not appear like an AV block according to EMS. I talked with patient at great length that she needs close follow-up. She is adamant about going home. She has ambulated without any difficulty. Discharge Plan Departure Patient Disposition: Home Clinical Impression: Syncope due to orthostatic hypotension Discharge Date/Time: 12/18/18 16:11 Interventions: ED Discharge Assessment Last Done: 12/18/18 16:11 Instructions: Fainting Activity Restrictions/Additional Instructions: *You have been diagnosed with orthostatic hypotension *What to do: It is imperative that you see her primary care provider. You have passed out 2 times. You need to increase her fluid intake and eat regular meals. Also standing for long periods of time can cause passing out I recommend that he set at least once an hour for 10-15 minutes *Continue to take medications as directed *Follow up with your primary care provider in 2-3 days *Return to ER if you should have passing-out chest pain heart palpitations dizziness lightheadedness nausea weakness and facial drooping difficulty speaking or any new, worsening or concerning symptoms Prescriptions: No Action methotrexate sodium 2.5 mg tablet See Rx Instructions .ROUTE .COMPLEX RF: 0 losartan 25 mg tablet 25 mg PO DAILY RF: 0 omeprazole 20 mg capsule,delayed release(DR/EC) 20 mg PO DAILY RF: 0 folic acid 1 dose PO DAILY RF: 0 Referrals: Latha Parra MD [Primary Care Provider] -
[2018-12-18] MEDS: SODIUM CHLORIDE 0.9% 1,000 ML 1000 ML IV (13:57)
[2018-12-18 13:59] LABS: Add Manual Diff / Slide Review NO; Basophils Absolute Auto 0 /uL (0-100); Basophils Percent Auto 0.9 % (0-2); Eosinophils Absolute Auto 100 /uL (0-450); Eosinophils Percent Auto 1.6 % (2-4); Hematocrit 35.6 % (36-46); Hemoglobin 11.4 g/dL (12.0-16.0); Lymphocytes Absolute Auto 400 /uL (1100-4500); Lymphocytes Percent Auto 6.9 % (25-40); Mean Corpuscular HGB Conc 32.1 % (30-36); Mean Corpuscular Hemoglobin 28.5 PG (26-34); Mean Corpuscular Volume 88.7 fL (80-100); Monocytes Absolute Auto 200 /uL (0-900); Neutrophils Absolute Auto 4700 /uL (1500-7000); Neutrophils Percent Auto 86.6 % (50-75); Platelet Count 203 X10^3/uL (150-400); Red Blood Cell Count 4.01 X10^6/uL (4.0-5.2); Red Cell Distribution Width 21.6 % (11.6-14.8); White Blood Cell Count 5.4 X10^3/uL (4.5-11.0)
[2018-12-18 14:29] LABS: Alanine Aminotransferase 35 IU/L (9-52); Albumin 3.3 g/dL (3.5-5.0); Albumin Globulin Ratio 1.2 (1.0-2.8); Alkaline Phosphatase 62 U/L (38-126); Aspartate Aminotransferase 41 IU/L (14-36); BUN Creatinine Ratio 13.3 (6-22); Blood Urea Nitrogen 16 mg/dL (7-17); Calcium 8.3 mg/dL (8.4-10.2); Carbon Dioxide 24 mmol/L (22-32); Chloride 106 mmol/L (98-107); Creatine Kinase 68 U/L (30-135); Estimated Glomerular Filt Rate 43.3 mL/min (>60); Globulin 2.7 g/dL (1.7-4.1); Glucose 149 mg/dL (80-110); HEMOLYSIS < 15 (0-50); Potassium 4.6 mmol/L (3.4-5.1); Sodium 140 mmol/L (137-145)
[2018-12-18 14:30] VITALS: BP 139/62; PULSE 85; RESP 23; O2SAT 95
[2018-12-18 14:30] LABS: Lactate (Lactic Acid) 2.9 mmol/L (0.7-2.1)
[2018-12-18 14:40] LABS: Howell Jolly Bodies 1+
[2018-12-18 14:41] LABS: Anisocytosis 3+; Macrocytosis 1+; Troponin I < 0.012 ng/mL (0.01-0.034)
[2018-12-18 15:49] VITALS: BP 127/76; BP 138/90; BP 149/83; PULSE 85; PULSE 88; PULSE 91
--- NOTE | 2018-12-18 15:49 | PC.NURSE ---
Pt ambulated without issue. Denies any symptoms with change of position or ambulation.
[2018-12-18 15:55] LABS: Reflexed Lactate in 2 Hours Y
== END 2018-12-18 16:11 | disposition home or self-care (01) ==
PROVIDERS: Emergency Provider Emergency Medicine; PCP Internal Medicine Geriatric Medicine
DX: I95.1 Orthostatic hypotension (principal)
CPT/HCPCS: 80053; 81003; 82550; 83605; 84484; 85025; 93005; 93010; 96360; 96361; 99283; 99284